=== PATIENT | female | born 1940 | race Caucasian/White ===

== ENCOUNTER 2016-10-03 12:36 | Emergency (ER) | payer OTHER ==
[~2016-10-03] VITALS: Ht 154.9 cm; Wt 74.5 kg
[~2016-10-03 12:36] MED LIST: LISINOPRIL20 MG PO; SYMBICORT60 INHALA1 IH
[2016-10-03] MEDS ORDERED: LEVOTHYROXINE25 MCG PO (13:22)
[2016-10-03 13:23] LABS: EOSINOPHIL (%) 0 % (0-5); HEMATOCRIT 42.4 % (36.0-46.0); IMMATURE GRANULOCYTE (%) 0.4 % (0.0-0.7); INSTRUMENT ABS NEUTROPHIL CT 6.2 K/uL; LYMPHOCYTE COUNT 0.8 K/uL (1.0-2.8); MCH 31.5 PG (29.0-34.0); MCHC 33.3 G/DL (30.0-36.0); MCV 94.9 FL (83-99); MEAN PLAT.VOLUME 9.1 uM^3 (9.5-12.4); MONOCYTE (%) 10.3 % (3-12); MONOCYTE COUNT 0.8 K/uL (0-0.8); NEUTROPHIL (%) 79.1 % (45-76); NEUTROPHIL COUNT 6.2 K/uL (1.8-6.4); PLATELET COUNT 181 K/uL (156-360); RBC DIS.WIDTH-CV 12.2 % (11.8-14.6); RBC DIS.WIDTH-SD 42.9 % (39-53); RED BLOOD COUNT 4.47 M/uL (3.80-5.20); WHITE BLOOD COUNT 7.9 K/uL (4.1-10.2)
[2016-10-03 13:37] LABS: CHLORIDE 103 mEq/L (99-109); SODIUM 134 mEq/L (136-147)
[2016-10-03 13:38] LABS: GLUCOSE 120 mg/dL (70-99)
[2016-10-03 13:40] LABS: ANION GAP 7 MEQ/L (2-14)
[2016-10-03 13:42] LABS: GFR ESTIMATE (CALCULATED) > 59 mL/min/
[2016-10-03 13:43] LABS: UREA NITROGEN (BUN) 12 mg/dL (9-23)
[2016-10-03 13:47] LABS: TROP-I INTERPRETATION NEGATIVE; TROPONIN-I < 0.01 ng/mL (0.0-0.30)
[2016-10-03] MEDS ORDERED: ROBITUSSIN AC,T10 ML PO (16:08)
[2016-10-03 16:22] VITALS: BP 127/74
== END 2016-10-03 16:24 | disposition home or self-care (01) ==
LOC: EME 12:36
PROVIDERS: Emergency Medicine
DX: R55 Syncope and collapse (principal); J44.9 Chronic obstructive pulmonary disease, unspecified; I10 Essential (primary) hypertension; K21.9 Gastro-esophageal reflux disease without esophagitis; Z87.891 Personal history of nicotine dependence
CPT/HCPCS: 71010; 80048; 84484; 85025; 93005; 99281; 99285